=== PATIENT | male | born 1995 | race Caucasian/White ===

== ENCOUNTER 2022-03-11 23:23 | Emergency (ER) | payer BC, OTHER ==
[~2022-03-11] VITALS: Ht 172.7 cm; Wt 74.8 kg
[2022-03-11 23:32] VITALS: BP 140/68
--- NOTE | 2022-03-11 23:59 | NUR ---
PT SAMARA WHEN HE STEPPED OUT IN WAITING ROOM AFTER TALKING TO FAMILY MEMBER
--- NOTE | 2022-03-11 23:59 | NUR ---
SEEN BY DR GOLDBERG AT BEDSIDE.
[2022-03-12] MEDS ORDERED: IV NS 0.9% 1,000 ML BAG IV ONE
== END 2022-03-12 00:03 | disposition left against medical advice (07) ==
LOC: ER 23:25
DX: R55 Syncope and collapse (principal)